=== PATIENT | female | born 1985 | race Caucasian/White ===

== ENCOUNTER 2025-01-23 10:21 | Emergency (ER) | payer MEDICAID ==
[~2025-01-23] VITALS: Ht 157.5 cm; Wt 95.5 kg
[2025-01-23 10:36] VITALS: TEMP 98.1
[2025-01-23] MEDS ORDERED: METF-1211 PO (10:39)
[2025-01-23 10:55] LABS: GLUCOMETER DEV NAME(LOC) ER.7; GLUCOSE,POINT OF CARE 272 MG/DL (70-110)
[2025-01-23 11:18] LABS: PLATELET COUNT (AUTO) 285 K/uL (150-450); RED BLOOD CELL COUNT(AUTO) 4.73 MIL/uL (4.00-5.20); RED CELL DISTRIBUTION WIDTH 13.6 % (11.5-14.5); WHITE BLOOD COUNT (AUTO) 6.6 K/uL (4.5-11.0)
[2025-01-23 11:28] LABS: CALCIUM, TOTAL 8.6 mg/dL (8.8-10.5); CREATININE 0.57 mg/dL (0.60-1.30); GLOMERULAR FILTR. RATE CALC > 60 mL/min (>60); GLUCOSE,RANDOM 296 mg/dL (70-110); SODIUM SERUM 136 mmol/L (136-145); UREA NITROGEN, BLOOD 7 mg/dL (7-18)
[2025-01-23 11:42] LABS: HCG,QUANTITATIVE 3 mIU/mL (0-6)
[2025-01-23] MEDS: SODIUM CHLORIDE 0.9% 1,000 ML IV ONE (13:27)
[2025-01-23] MEDS: KETOROLAC TROMETHAMINE 30 MG/ML VIAL IVP ONE ×2 (13:28→15:18)
[2025-01-23] MEDS ORDERED: ONDANSETRON HCL 4 MG/2 ML VIAL IVP ONE (13:30)
[2025-01-23 13:47] LABS: APPEARANCE,URINE CLEAR (CLEAR); GLUCOSE, URINE (UA) >=1000 mg/dL (NEGATIVE); LEUKOCYTE ESTERASE ,URINE NEGATIVE (NEGATIVE); NITRATE,URINE NEGATIVE (NEGATIVE); OCCULT BLOOD,URINE LARGE (NEGATIVE); SPECIFIC GRAVITIY, URINE 1.030 (1.003-1.030)
[2025-01-23 13:56] LABS: SQUAMOUS EPITHELIAL CELL,UR Moderate /LPF (None Seen)
[2025-01-23] MEDS: OxyCODONE HCL/ACETAMINOPHEN 5-325 MG TABLET PO ONE (15:18)
[2025-01-23] MEDS ORDERED: IBUP-1554 PO (16:18)
[2025-01-23] MEDS ORDERED: POLY119P3 PO (16:18)
[2025-01-23] MEDS ORDERED: PERCT PO (16:18)
[2025-01-23 16:55] VITALS: BP 121/82; PULSE 89; RESP 18; O2SAT 99
== END 2025-01-23 16:57 | disposition home or self-care (01) ==
LOC: EMS 10:27
DX: N20.9 Urinary calculus, unspecified (principal); E11.65 Type 2 diabetes mellitus with hyperglycemia; Z87.442 Personal history of urinary calculi; N89.8 Other specified noninflammatory disorders of vagina; Z88.5 Allergy status to narcotic agent; Z79.899 Other long term (current) drug therapy
CPT/HCPCS: 99285; 74176; 96374; 96375; 96361; 80048; 81001; 82150; 82962; 83690; 84702; 85025; 36415; J1885; J1200; J1171; J2405; J7030

== ENCOUNTER 2025-01-31 08:37 | Emergency (ER) | payer MEDICAID ==
[~2025-01-31] VITALS: Ht 157.5 cm; Wt 95.5 kg
[~2025-01-31 08:37] MED LIST: IBUP-1554 PO; METF-1211 PO; PERCT PO; POLY119P3 PO
[2025-01-31 08:38] VITALS: TEMP 98.2
[2025-01-31 09:04] LABS: APPEARANCE,URINE CLEAR (CLEAR); GLUCOSE, URINE (UA) 300-500 mg/dL (NEGATIVE); LEUKOCYTE ESTERASE ,URINE TRACE (NEGATIVE); NITRATE,URINE NEGATIVE (NEGATIVE); OCCULT BLOOD,URINE LARGE (NEGATIVE); SPECIFIC GRAVITIY, URINE 1.021 (1.003-1.030)
[2025-01-31 09:42] LABS: SQUAMOUS EPITHELIAL CELL,UR Moderate /LPF (None Seen)
[2025-01-31] MEDS: SODIUM CHLORIDE 0.9% 1,000 ML IV ONE ×2 (11:35→14:41)
[2025-01-31] MEDS: KETOROLAC TROMETHAMINE 30 MG/ML VIAL IVP ONE (11:36)
[2025-01-31] MEDS: FentaNYL CITRATE PF 100 MCG/2 ML VIAL IVP ONE ×2 (12:15→14:50)
[2025-01-31 15:25] VITALS: BP 121/76; PULSE 81; RESP 20; O2SAT 100
[2025-01-31] MEDS ORDERED: PERCT PO (15:32)
== END 2025-01-31 15:40 | disposition home or self-care (01) ==
LOC: EMS 08:37
DX: N20.0 Calculus of kidney (principal); R31.9 Hematuria, unspecified; R10.A2 Flank pain, left side; E11.9 Type 2 diabetes mellitus without complications; Z88.5 Allergy status to narcotic agent; Z87.442 Personal history of urinary calculi; Z79.899 Other long term (current) drug therapy
CPT/HCPCS: 99285; 74176; 96374; 96361; 81001; 82962; 84703; J1885; J3010; J7030